=== PATIENT | female | born 1935 | race Caucasian/White ===

== ENCOUNTER 2019-05-08 07:23 | Day surgery (SDC) | payer MEDICARE, OTHER, SELFPAY ==
--- NOTE | 2019-05-08 | PATH_ITS ---
[facility] Accession Number: [id number] . 01 Material submitted: . colon - RANDOM COLON BIOPSIES . 01 Clinical history: . R/O MICROSCOPIC COLITIS . 02 Diagnosis: Random Colon, Biopsies: Lymphocytic colitis. A single crypt abscess is present; please see comment. Negative for dysplasia or malignancy. MRV 05/13/2019 1321 Local . 02 Comment: The histologic findings are most consistent with lymphocytic colitis. There is a single crypt abscess present. The finding of active inflammation can certainly be seen in lymphocytic colitis; however, this also raises the possibility of an overlapping acute self-limited colitis (infectious versus drug/toxin induced). Please correlate with clinical and endoscopic findings. . As part of routine quality control clerk, Dr. Zayas has reviewed this case and agrees with the diagnosis of lymphocytic colitis. . 02 Electronically signed: . Albert Desir MD, PhD, Pathologist NPI- [id number] . 01 Gross description: . RANDOM COLON BIOPSIES: Received in formalin are multiple fragment(s) of pugh, soft tissue measuring 1.0 x 1.0 x 0.1 cm in aggregate submitted entirely in 1 cassette(s) /QBJ 05/09/2019 0035 Local . 02 Pathologist provided ICD-10: R19.7, K52.89 . 02 CPT . 930865 Performed at: 01 [facility] [address], [place], [place] [id number] MD Ish Napier MD Phone: [phone] Performed at: 02 [facility] [address] [place], [place] [id number] MD Maggy Zayas MD Phone: [phone]
[2019-05-08 07:49] VITALS: BMI 34.2
[2019-05-08 08:05] VITALS: BP 170/78; PULSE 88; RESP 16; TEMP 36.4; O2SAT 94
[2019-05-08] MEDS: SODIUM CHLORIDE 0.9% 1,000 ML 70 ML IV (08:05)
--- NOTE | 2019-05-08 08:29 | P.HP_ITS ---
History of Present Illness History of Present Illness Date Patient Seen: 05/08/19 Time Patient Seen: 08:30 Chief complaint: [id number] Narrative: Patient is an 84 year old female with change of bowel habits, alternating diarrhea and constipation. More diarrhea than before. No rectal bleeding. Patient History Medical History (Updated 05/08/19 @ 08:30 by Di Peter DO) H/O blood clots (Acute) Hypertension (Acute) Family & Social History Social History: household members family,children Meds Home Medications and Allergies Home Medications Medication Instructions Recorded Confirmed Type Evamist 1.53 mg TD WEEKLY #0 11/12/10 05/08/19 History celecoxib [Celebrex] 200 mg PO QDAY #0 11/12/10 05/08/19 History esomeprazole magnesium [Nexium] 40 mg PO QDAY #0 11/12/10 05/08/19 History hydrochlorothiazide 25 mg PO QAM #0 11/12/10 05/08/19 History multivitamin 1 cap PO DAILY #0 11/12/10 05/08/19 History peg 400-propylene glycol [Systane 1 drp OPHTHALMIC (EYE) DAILY #0 11/12/10 05/08/19 History (propylene glycol)] aspirin [Aspir-81] 81 mg PO DAILY #0 11/23/10 05/08/19 History losartan 100 mg PO QDAY #0 02/15/12 05/08/19 History latanoprost 1 % OPHTHALMIC (EYE) BEDTIME 05/08/19 05/08/19 History prednisone 5 mg PO DAILY 05/08/19 05/08/19 History timolol 1 drp OPHTHALMIC (EYE) DAILY 05/08/19 05/08/19 History Allergies Allergy/AdvReac Type Severity Reaction Status Date / Time No Known Drug Allergies Allergy Verified 05/08/19 07:43 Review of Systems Review of Systems ROS Unobtainable: All systems reviewed & are unremarkable except as noted in HPI and below Exam Vital Signs (past 8 hours): - 05/08/19 08:05 Temperature 97.5 F L Pulse Rate 88 Respiratory Rate 16 Blood Pressure 170/78 H Pulse Oximetry 94 Oxygen Delivery Method Room Air Const General: cooperative, healthy appearing, comfortable, well developed, well groomed and No acute distress Nutritional Appearance: overweight Orientation: alert and awake [facility] Head: normocephalic and atraumatic Nose: external nose normal Cardio Rate: regular rate Rhythm: regular rhythm Heart Sounds: S1 normal and S2 normal GI Palpation: soft, No guarding, No rigid and No tender Auscultation: normal bowel sounds Extrem Right lower extremity: no edema Left lower extremity: no edema Assessment & Plan Assessment & Plan narrative: 1. Change in bowel habits Plan: Colonoscopy today, further recommendations to follow
[2019-05-08] MEDS: fentaNYL 250 MCG/5 ML INJ IV (09:27)
[2019-05-08] MEDS: MIDAZOLAM 5 MG/5 ML VIAL IV (09:27)
--- NOTE | 2019-05-08 09:37 | SUR.OPER ---
LEFT EAR HEARING AID IN LABELED BAG TO PACU WITH PATIENT. RIGHT EAR HEARING AID IN PLACE
[2019-05-08 09:57] VITALS: BP 153/65; PULSE 73; RESP 22; TEMP 36.3; O2SAT 96
--- NOTE | 2019-05-08 09:59 | PM.OP.ENDO ---
Operative Date/Time/Diagnoses Date of procedure: 05/08/19 Time of procedure: 09:31 Procedure Notes Procedure in detail: Surgeon: Di Peter DO Procedure: Colonoscopy with biopsy Preoperative diagnosis: 1. Change of bowel habits 2. Diarrhea Postoperative diagnosis: 1. Sigmoid and descending colon diverticulosis 2. Normal-appearing terminal ileum 3. Normal appearing colonic mucosa with random colon biopsies to rule out microscopic colitis 4. Mild internal hemorrhoids noted on retroflexion Medications: Conscious sedation using 4 mg IV of Midazolam and 75 mcg IV of Fentanyl Preanesthesia Assessment An H and P was performed/updated and the Px?s ASA class is 2. The procedure was discussed in detail with the patient. The potential risks and complications including infection, bleeding, missed lesions, perforation, need for surgery in case of perforation, prolonged hospital stay, and were explained. A brief question and answer period was allotted and once all questions were answered, informed consent was obtained. The patient was brought back to the procedure room and placed on standard monitoring. The patient?s vital signs were monitored continuously throughout the entire procedure. Prior to starting, a timeout was performed to confirm the patient?s identity, allergies, medications, and procedure. Procedure in detail The patient was placed in left lateral decubitus position and once adequate sedation was obtained a JOE was performed. The digital rectal examination did not reveal any palpable lesions. The tip of the colonoscope was placed in the anal canal and advanced without difficulty all the way to the cecum which was identified by the appendiceal orifice and the ileocecal valve. Careful examination of all alfonso of the colon was performed with irrigation of any residual stool. Normal appearing mucosa appeared throughout the entire colon, biopsies were randomly for microscopic colitis. Medium-sized diverticulum noted in the sigmoid and descending colon Mild internal hemorrhoids, grade 1 noted during retroflexion Terminal ileum appeared normal Otherwise unremarkable colonoscopy The patient tolerated the procedure well and will be brought back to the recovery area to be discharged once criteria are met. The prep was judged to be good/excellent and adequate to identify polyps less than 5 mm. The withdrawal time was 8min. The total physician intraservice time was 18min. Complications There were no complications and estimated blood loss was minimal. Recommendations: Resume previous diet -high-fiber diet Continue outPx medications Follow up pathology results No repeat colonoscopy due to advanced age Office follow up if persistent symptoms An emergency contact number was given to the patient for any complications related to the procedure Scope withdrawal time: 8 min Sedation minutes: 18
[2019-05-08 10:01] VITALS: BP 140/56; PULSE 75; RESP 16; O2SAT 97
[2019-05-08 10:06] VITALS: BP 140/77; PULSE 74; RESP 16; TEMP 36.4; O2SAT 95
[2019-05-08 10:10] VITALS: BP 143/68; PULSE 72; RESP 16; TEMP 36.4; O2SAT 95
== END 2019-05-08 10:25 | disposition home or self-care (01) ==
PROVIDERS: PCP Family Medicine; Visit Provider Student in an Organized Health Care Education/Training Program
PROC: 0DJD8ZZ Inspection of Lower Intestinal Tract, Via Natural or Artificial Opening Endoscopic (ICD-10-PCS; CPT 45378; principal; 2019-05-08 09:00)
DX: K52.89 Other specified noninfective gastroenteritis and colitis (principal); R19.4 Change in bowel habit; I10 Essential (primary) hypertension; K57.30 Diverticulosis of large intestine without perforation or abscess without bleeding; K64.0 First degree hemorrhoids
CPT/HCPCS: 45380; J2250; J3010